=== PATIENT | male | born 1985 | race African-American/Black ===

== ENCOUNTER 2019-01-17 21:27 | Emergency (ER) | payer MEDICAID ==
[~2019-01-17] VITALS: Ht 177.8 cm; Wt 97.5 kg
--- NOTE | 2019-01-17 21:50 | NUR ---
PT BIBSELF C/O LEFT FOOT PAIN S/P GLF WHILE PLAYING BASKETBALL. DENIES KO. PT UNABLE TO AMBULATE. NOTED DISFORMITY ON LEFT FOOT. PT AAOX4. RESPIRATIONS EVEN AND UNLABORED. SKIN WARM AND INTACT. NO ACUTE DISTRESS NOTED. WILL CONTINUE TO MONITOR
[2019-01-17] MEDS ORDERED: IBUPROFEN 400 MG TABLET ONE (22:22)
[2019-01-17] MEDS ORDERED: IBUPROFEN 400 MG TABLET PO ONE (22:30)
[2019-01-17] MEDS ORDERED: HYDROCODONE/APAP 10/325MG 1 EA TABLET PO ONE (23:00)
[2019-01-17] MEDS ORDERED: HYDROCODONE/APAP 10/325MG 1 EA TABLET ONE (23:13)
--- NOTE | 2019-01-17 23:19 | NUR ---
XRAY AT BEDSIDE.
--- NOTE | 2019-01-18 00:42 | NUR ---
DR. CRUZ AFTER HOURS LINE CALLEDMD NOT AVAILABLE; LEFT A MESSAGE
--- NOTE | 2019-01-18 00:52 | NUR ---
EPIC CALLED PER .
--- NOTE | 2019-01-18 01:10 | NUR ---
LEFT A MESSAGE WITH NICO GONZALEZ DPM
--- NOTE | 2019-01-18 01:44 | NUR ---
BED ASSIGNMENT 304-1
--- NOTE | 2019-01-18 01:56 | NUR ---
CALLED Zana Murphy DPM ANSWERING SERVICE: : PER SERVICE IS [employer] FOR [facility], ANSWERING SERVICE WAS UNABLE TO REACH AT THIS MOMENT. THEY WILL TRY TO REACH AGAIN.
--- NOTE | 2019-01-18 02:08 | NUR ---
TRIED TO REACH DR. CUNHA THROUGH ANSWERING SERVICE, STILL UNABLE TO REACH, WILL CALL BACK AGAIN IN 5 MINS.
--- NOTE | 2019-01-18 02:18 | NUR ---
CALLED ANSWERING SERVICE FOR DR. CUNHA, UNABLE TO REACH X3
--- NOTE | 2019-01-18 02:36 | NUR ---
ATTEMPT #5, UNABLE TO REACH DR CUNHA THROUGH ANSWERING SERVICE.
[2019-01-18] MEDS ORDERED: MORPHINE SULFATE INJ 2 MG/ML DISP.SYRIN ONE (02:52)
[2019-01-18] MEDS ORDERED: MORPHINE SULFATE INJ 4 MG/ML DISP.SYRIN ONE (02:52)
[2019-01-18] MEDS ORDERED: MORPHINE SULFATE INJ 2 MG/ML DISP.SYRIN IM ONE (03:00)
--- NOTE | 2019-01-18 03:04 | NUR ---
Patient discharged to home in stable condition. Written and verbal after care instructions given. Patient verbalizes understanding of instruction. Pt ambulatory with a steady gait
[2019-01-18 03:05] VITALS: BP 110/89
== END 2019-01-18 03:05 | disposition home or self-care (01) ==
LOC: ER 21:39 → MED 01-18 01:45 → UNDOADMIN 01-18 01:45 → ER 01-18 03:05
DX: S93.12 Dislocation of metatarsophalangeal joint (principal); W22.8XXA Striking against or struck by other objects, initial encounter; Y93.67 Activity, basketball; Y92.89 Other specified places as the place of occurrence of the external cause; Y99.8 Other external cause status
CPT/HCPCS: 73630-TC; 87081-TC; J2270